=== PATIENT | female | born 1935 | race Caucasian/White ===

== ENCOUNTER 2017-09-06 08:33 | Outpatient (RCR) | payer MEDICARE, OTHER ==
[~2017-09-06 08:33] MED LIST: ALLERGY SHOT; ALPRAZOLAM0.25 M1 PO; ARICEPT5 MG PO; ASA81 MG PO; ASPIR 8181 MG PO; ASPIRIN CHEW81 MG PO; ASPIRIN81 MG PO; CLONIDINE HCL0.1 MG PO; DONEPEZIL HCL5 MG PO; ESCITALOPRAM OX10 MG PO; FERROUS SULFAT325 M1 PO; FERROUS SULFAT325 MG PO; FOLIC ACID1 MG PO; FUROSEMIDE20 MG PO; HYDRALAZINE HCL10 MG PO; HYDRALAZINE HCL25 MG PO; LEXAPRO10 MG PO; LISINOPRIL10 MG PO; POTASSIUM CHLO10 ME1 PO; TRAZODONE HCL50 MG PO; TYLENOL # 31 EA PO; VITAMIN D2000 UNIT PO; Z.0.AMLODIPINE BESYL PO; Z.0.ATENOLOL50 MG OP; Z.0.CRESTOR10 MG PO; Z.0.DETROL LA4 MG PO; Z.0.RANITIDINE HCL30 PO; Z.0.TRICOR145 MG PO; protonix PO
[2017-09-06] MEDS ORDERED: LIDOCAINE VISC 2% SOLN 15 ML UDC ONE (14:53)
[2017-09-15] MEDS ORDERED: MELOXICAM7.5 MG PO (16:33)
[2017-09-15] MEDS ORDERED: HYDRALAZINE HCL50 MG PO (16:33)
[2017-09-15] MEDS ORDERED: FUROSEMIDE20 MG PO (16:33)
[2017-09-15] MEDS ORDERED: QUETIAPINE FUMA25 MG PO (16:34)
== END 2017-09-18 ==
LOC: WCC 08:33
PROVIDERS: ATTEND Plastic Surgery
DX: L89.223 Pressure ulcer of left hip, stage 3 (principal); F03.90 Unspecified dementia, unspecified severity, without behavioral disturbance, psychotic disturbance, mood disturbance, and anxiety; G30.9 Alzheimer's disease, unspecified; I10 Essential (primary) hypertension; Z74.01 Bed confinement status

== ENCOUNTER → 2017-09-16 | Day surgery (SDC) | payer MEDICARE, OTHER ==
[~2017-09-16] MED LIST changes: +BACITRACIN 50,000 UNIT VIAL ONE; +BUPIVACAINE 0.5%/EPI 30 ML SDV INJ ONE; +BUPIVACAINE HCL 0.5% INJ 30 ML VIAL INJ ONE; +CLINDAMYCIN 600MG / 50ML 50 ML IV ONE; +FENTANYL CITRATE/PF 100MCG/2 ML INJ ONE; +HYDRALAZINE HCL50 MG PO; +LEVOTHYROXINE50 MCG PO; +LIDOCAINE HCL 1% LOCAL INJ 20 ML VIAL ONE; +LIDOCAINE HCL 2% LOCAL INJ 5 ML SDV VIAL INJ ONE; +MELOXICAM7.5 MG PO; +MUPIROCIN 2% OINT 22 GM TUBE ONE; +PROPOFOL IV EMULSION 10 MG/ML 20 ML VIAL ONE; +QUETIAPINE FUMA25 MG PO
--- OUTSIDE RECORDS SUMMARY | 2017-09-16 05:49 | XMS REPORT ---
[facility] Address Unknown Phone Unavailable Care Team Providers Care Art Framing Manager Name Role Phone RSOSI ZAVALETA Unavailable Unavailable GALDINO LEE Unavailable Unavailable Problems This patient has no known problems. Allergies, Adverse Reactions, Alerts This patient has no known allergies or adverse reactions. Medications This patient has no known medications. Results Test Description Test Time Test Comments Text Results Atomic Results Result Comments ABDOMEN-1VIEW (KUB) [place] [address] Patient Name: OSWALD RUBIO MR #: [id number] : 1935 Age/Sex: 82/F Req #: [id number] Adm Physician: ROSSI ZAVALETA MD Ordered by : DARIEN ALONSO MD Report #: [id number] Location: MED/SURG3 Room/Bed: [facility] Procedure: [id number] DX/ABDOMEN-1VIEW (KUB) Exam Date : 03/23/17 Exam Time: 1357 REPORT STATUS: Signed PROCEDURE: X-RAY ABDOMEN - KUB COMPARISON: [facility], CT, CT ABDOMEN/PELVIS W, 10/28/2016, 10:13. INDICATIONS: CONSTIPATION FINDINGS: Nonobstructive bowel gas pattern. No air- filled, dilated loops of bowel. Cihy-bo-rtbexswy distention of the stomach. Large amount of stool retained in the colon, suggesting constipation. Multiple calcifications in the pelvis, likely reflecting phleboliths. Cholecystectomy clips. Marked levoscoliosis of the lumbosacral spine, with associated marked degenerative changes. Atherosclerotic calcification of the abdominal aorta. Generalized osteopenia. CONCLUSION: Large amount of retained stool in the colon, suggesting constipation. No air-filled, dilated loops of bowel. Ade Roblero M.D. Dictated by: Ade Roblero M.D. on 03/23/2017 at 14:36 Electronically approved by: Ade Roblero M.D. on 03/23/2017 at 14:36 Dictated By: ADE ROBLERO MD 1436 Transcribed By: KIANA on 03/23/17 1436 COPY TO: DARIEN ALONSO MD CT BRAIN WO [place] [address] Patient Name: OSWALD RUBIO MR #: [id number] : 1935 Age/Sex: 82/F Req # : [id number] Adm Physician: Ordered by: GALDINO LEE MD Report #: [id number] Location: ER Room/Bed: Procedure: [id number] CT/CT BRAIN WO Exam Date: 03/17/17 Exam Time: 1933 REPORT STATUS: Signed EXAMINATION: Head CT without contrast. HISTORY:Trauma, status post fall. COMPARISON:CT brain from 11/29/2015. TECHNIQUE: Multidetector axial images were obtained from the foramen magnum to the vertex without contrast. The images were reconstructed using brain and bone algorithms. Thin section brain images were reformatted into coronal and sagittal planes. Intravenous contrast: None IMAGE QUALITY: Acceptable. FINDINGS: Skull/scalp: Moderate right frontal scalp edema /hematoma. No acute depressed or displaced calvarial fracture. Parenchyma: Unchanged nonspecific bilateral frontoparietal scattered white matter hypodensity are likely related to small vessel ischemic changes. Unchanged cortical-based hypodensity in right inferior temporal gyrus with associated regional volume loss represents chronic encephalomalacia from prior vascular insult or trauma. No acute hemorrhage, mass or acute major vascular territorial infarct. Arteries: Mild atherosclerotic calcification in bilateral carotid siphon. Dural sinuses: No abnormal density suggestive of thrombosis. Ventricles: Mild compensated dilatation due to volume loss. No hydrocephalus. Extra-axial spaces: No abnormal density. Brain volume: Mild generalized cerebral volume loss, with mild predominant involvement of bilateral medial temporal lobes can be seen in the setting of Alzheimer's disease. Craniocervical junction: No mass, Chiari malformation, or basilar invagination. Sella: No mass. Paranasal/mastoid sinuses: Imaged portions unremarkable. IMPRESSION: 1. Moderate right frontal scalp edema/hematoma. No acute fracture. 2. No acute posttraumatic intracranial abnormality. Chronic findings: 1. Mild supratentorial white matter microvascular ischemic changes. 2. Right inferior temporal chronic encephalomalacia, possibly a sequel of prior vascular insult or trauma. 3. Generalized cerebral volume loss with mild predominance of bilateral medial temporal involvement as detailed above. Signed by: Dr. Teri Chance M.D. on 03/17/2017 8:13 PM Dictated By: TERI CHANCE MD 12 Transcribed By: MARILYN on 03/17/172012 COPY TO: GALDINO LEE MD CT CERVICAL SPINE [place] [address] Patient Name: OSWALD RUBIO MR #: [id number] : 1935 Age/Sex: 82/F Req #: [id number] Adm Physician: Ordered by: GALDINO LEE MD Report #: [id number] Location: Room/Bed: Procedure: [id number] CT/CT CERVICAL SPINE WO Exam Date: 03/17/17 Exam Time: 1933 REPORT STATUS: Signed History: Status post fall. Comparison studies: None Technique: Axial images were obtained through the cervical region.. Coronal and sagittal images reconstructed from the axial data.. Intravenous contrast: None Findings: Fractures: None. Soft tissue injuries: None. Atlantoaxial articulation: Intact. Alignment: Normal lordosis. No scoliosis. Cervicomedullary junction: No abnormalities. The foramen magnum is patent. Soft tissues: No abnormalities. Vertebrae: No fractures, infection or neoplasm. 3 mm well-circumscribed, round sclerotic lesion in left occipital condyle possibly represents a bone island. Degenerative changes: Moderate to severe degenerative changes in the anterior atlantodental joint. C3-C4: Moderate degenerative disc disease with decreased intervertebral disc space, endplate sclerosis and anterior vertebral osteophyte. 2 mm grade 1 retrolisthesis. Posterior disc osteophyte complex and grade 1 retrolisthesis results in mild canal stenosis. Mild right and severe left foraminal stenosis due to facet and uncovertebral arthrosis. C4-C5: Moderate degenerative disc disease with decreased intervertebral disc space, endplate sclerosis and anterior vertebral osteophyte. Posterior disc osteophyte complex results in mild canal stenosis. Bilateral severe foraminal stenosis due to facet and uncovertebral arthrosis. C5-C6: Moderate degenerative disc disease with decreased intervertebral disc space, endplate sclerosis and anterior vertebral osteophyte. Posterior disc osteophyte complex and ossification of the posterior longitudinal ligament results in moderate canal stenosis. Moderate right and severe left foraminal stenosis due to facet and uncovertebral arthrosis. C6-C7: Posterior disc osteophyte complex results in mild canal stenosis. Bilateral moderate foraminal stenosis due to facet and uncovertebral arthrosis.. IMPRESSION: 1. No acute cervical spine abnormalities. 2. Ligament, spinal cord and or vascular abnormalities cannot be excluded on the basis of this examination. 3. Cervical spondylosis as detailed above. Signed by: Dr. Teri Chance M.D. on 03/17/2017 8:20 PM Dictated By: TERI CHANCE MD 19 Transcribed By: MARILYN on 03/17/172019 COPY TO: GALDINO LEE MD WRIST COMPLETE LEFT [place] [address] Patient Name: OSWALD RUBIO MR #: [id number] : 1935 Age/Sex: 82/F Req #: [id number] Adm Physician: Ordered by: GALDINO LEE MD Report #: [id number] Location: ER Room/Bed: Procedure: [id number] DX/WRIST COMPLETE LEFT Exam Date: 03/17/17 Exam Time: 1950 REPORT STATUS: Signed Left wrist x-ray - 3 views HISTORY: COMPARISON: 03/17/2017 FINDINGS: Bones: No displaced fracture. Diffuse demineralization of the left hand and wrist. Osseous alignment is within normal limits. Joints: Moderate degenerative changes of the left wrist and hand involving predominantly the first and second carpometacarpal joint as well as distal interphalangeal joints. Soft tissues: Dorsal soft tissue swelling throughout the hand and wrist IMPRESSION: Persistent dorsal soft tissue swelling without underlying acute osseous abnormalities. Progressive bony outgrowth within the base of the right first metatarsal may be due to healing of a nondisplaced fracture. Signed by: Dr. Ирина Lockett M.D. on 03/17/2017 8:31 PM Dictated By: ИРИНА LOCKETT MD 30 Transcribed By: MARILYN on 03/17/172030 COPY TO: GALDINO LEE MD CHEST SINGLE (PORTABLE) [address], [place], [place] [address] Patient Name: OSWALD RUBIO MR #: [id number] : 1935 Age/Sex: 82/F Req #: [id number] Adm Physician: Ordered by: GALDINO LEE MD Report #: [id number] Location: ER Room/Bed: Procedure: [id number] DX/CHEST SINGLE (PORTABLE) Exam Date: 03/17/17 Exam Time: 1949 REPORT STATUS: Signed EXAMINATION: CHEST SINGLE (PORTABLE) INDICATION: COMPARISON: FINDINGS: AP view TUBES and LINES: None. LUNGS : Lungs are well inflated. Lungs are clear. There is no evidence of pneumonia or pulmonary edema. PLEURA: No pleural effusion or pneumothorax. HEART AND MEDIASTINUM: The cardiomediastinal silhouette is unremarkable. BONES AND SOFT TISSUES: Intact median sternotomy wires. Degenerative changes of the right glenohumeral joint. Persistent elevation of the right hemidiaphragm. UPPER ABDOMEN: No free air under the diaphragm. IMPRESSION: No acute thoracic abnormality. Signed by: Dr. Ирина Lockett M.D. on 03/17/2017 8:42 PM Dictated By: ИРИНА LOCKETT MD 41 Transcribed By: MARILYN on 03/17/172041 COPY TO: GALDINO LEE MD HAND 3+ VIEWS LEFT [place] [id number] [place] [address] Patient Name: OSWALD RUBIO MR #: [id number] : 1935 Age/Sex: 82/F Req #: [id number] Adm Physician: Ordered by: GALDINO LEE MD Report #: [id number] Location: ER Room/Bed: Procedure: [id number] DX/HAND 3+ VIEWS LEFT Exam Date: 03/17/17 Exam Time: 0450 REPORT STATUS: Signed WRIST COMPLETE LEFT HAND 3+ VIEWS LEFT HISTORY: Pain COMPARISON: None FINDINGS: Bones: No displaced fracture. Diffuse demineralization of the left hand and wrist. Osseous alignment is within normal limits. Joints: Moderate degenerative changes of the left wrist and hand involving predominantly the first and second carpometacarpal joint as well as distal interphalangeal joints. Soft tissues: Dorsal soft tissue swelling throughout the hand and wrist IMPRESSION: Severe dorsal soft tissue swelling without underlying acute osseous abnormalities. Signed by: Dr. Maxime Myers M.D. on 03/17/2017 6:03 AM Dictated By: MAXIME MARTIN MD 2 Transcribed By: MARILYN on 03/17/17602 COPY TO: GALDINO LEE MD WRIST COMPLETE LEFT [place] [address] Patient Name: OSWALD RUBIO MR #: [id number] : 1935 Age/Sex: 82/F Req #: [id number] Adm Physician: Ordered by: GALDINO LEE MD Report #: [id number] Location: ER Room/Bed: Procedure: DX/WRIST COMPLETE LEFT Exam Date: 03/17/17 Exam Time: 0455 REPORT STATUS: Signed WRIST COMPLETE LEFT HAND 3+ VIEWS LEFT HISTORY: Pain COMPARISON: None FINDINGS: Bones: No displaced fracture. Diffuse demineralization of the left hand and wrist. Osseous alignment is within normal limits. Joints: Moderate degenerative changes of the left wrist and hand involving predominantly the first and second carpometacarpal joint as well as distal interphalangeal joints. Soft tissues: Dorsal soft tissue swelling throughout the hand and wrist IMPRESSION: Severe dorsal soft tissue swelling without underlying acute osseous abnormalities. Signed by: Dr. Maxime Myers M.D. on 03/17/2017 6:03 AM Dictated By: MAXIME MARTIN MD 2 Transcribed By: MARILYN on 03/17/17602 COPY TO: GALDINO LEE MD CHEST SINGLE (PORTABLE) [place] [address] Patient Name: OSWALD RUBIO MR #: [id number] : 1935 Age/Sex: 82/F Req #: [id number] Adm Physician: Ordered by: GALDINO LEE MD Report #: [id number] Location: ER Room/Bed: Procedure: DX/CHEST SINGLE (PORTABLE) Exam Date: 03/17/17 Exam Time: 0445 REPORT STATUS: Signed EXAMINATION: CHEST SINGLE (PORTABLE) INDICATION: Hypertensive urgency. COMPARISON: 11/29/2015 FINDINGS: TUBES and LINES: None. LUNGS: Lungs are not well inflated. There are bibasilar atelectasis. There is no evidence of pneumonia or pulmonary edema. PLEURA: No pleural effusion or pneumothorax. HEART AND MEDIASTINUM: Cardiac size is mildly enlarged. There are atherosclerotic calcifications within the aorta. Midline sternotomy wires are intact. BONES AND SOFT TISSUES: No acute osseous lesion. Soft tissues are unremarkable. UPPER ABDOMEN: No free air under the diaphragm. There are cholecystectomy clips. IMPRESSION: No acute thoracic abnormality. Signed by: Dr. Maxime Myers M.D. on 03/17/2017 6: 04 AM Dictated By: MAXIME MARTIN MD 3 Transcribed By: MARILYN on 03/17/17603 COPY TO: GALDINO LEE MD HAND 3+ VIEWS LEFT [place] [address] Patient Name: OSWALD RUBIO MR #: [id number] : 1935 Age/Sex: 82/F Req #: [id number] Adm Physician: Ordered by: GALDINO LEE MD Report #: [id number] Location: ER Room/Bed: Procedure: [id number] DX/HAND 3+ VIEWS LEFT Exam Date: 03/17/17 Exam Time: 1955 REPORT STATUS: Signed Left wrist x-ray - 3 views, left hand x-ray, 3 views HISTORY: COMPARISON: FINDINGS: Bones: Linear lucency within the distal aspect of the left second proximal phalanx. Otherwise, no fractures in the hands and wrist. Diffuse demineralization of the left hand and wrist. Osseous alignment is within normal limits. Joints: Moderate degenerative changes of the left wrist and hand involving predominantly the first and second carpometacarpal joint as well as distal interphalangeal joints. Soft tissues: Dorsal soft tissue swelling throughout the hand and wrist. Linear lucency within the distal aspect of the left second proximal phalanx suggestive of age-indeterminate nondisplaced fracture, likely subacute. IMPRESSION: Persistent dorsal soft tissue swelling without underlying acute osseous abnormalities. Progressive bony outgrowth within the base of the right first metatarsal may be due to healing of a nondisplaced fracture. Signed by: Dr. Ирина Lockett M.D. on 03/17/2017 8:45 PM Dictated By: ИРИНА LOCKETT MD 44 Transcribed By: MARILYN on 03/17/172044 COPY TO: GALDINO LEE MD
[2017-09-16 06:06] LABS: BASOPHILS % 0.2 % (0.0-1.0); EOSINOPHILS % 0.1 % (0.0-6.0); HEMATOCRIT 33.9 % (34.2-44.1); HEMOGLOBIN 11.5 g/dL (12.0-16.0); LYMPHOCYTES # (AUTO) 0.7 (1.0-3.2); LYMPHOCYTES % 4.7 % (18.0-39.1); MEAN CORPUSCULAR HEMOGLOBIN 30.6 pg (28-32); MEAN CORPUSCULAR HGB CONC 33.9 g/dL (31-35); MEAN CORPUSCULAR VOLUME 90.2 fL (81-99); MONOCYTES # (AUTO) 1.5 (0.2-0.8); MONOCYTES % 9.3 % (4.4-11.3); NEUTROPHILS # (AUTO) 13.4 (2.1-6.9); NEUTROPHILS % 85.2 % (38.7-80.0); PLATELET COUNT 323 x10e3/uL (140-360); RED BLOOD COUNT 3.76 x10e6/uL (3.6-5.1); RED CELL DISTRIBUTION WIDTH 12.6 % (11.7-14.4)
[2017-09-16 06:18] LABS: INR 1.17
[2017-09-16 06:19] LABS: PARTIAL THROMBOPLASTIN TIME 33.1 seconds (23.8-35.5)
[2017-09-16 06:27] LABS: ANION GAP 13.3 mmol/L (8-16); BLOOD UREA NITROGEN 15 mg/dL (7-26); BUN/CREATININE RATIO 22 (6-25); CALCIUM 8.8 mg/dL (8.4-10.2); CARBON DIOXIDE 25 mmol/L (22-29); CHLORIDE 106 mmol/L (98-107); CREATININE, SERUM 0.69 mg/dL (0.57-1.11); EST GLOMERULAR FILTRATION RATE > 60 ML/MIN (60-); GLUCOSE 96 mg/dL (74-118); POTASSIUM 4.3 mmol/L (3.5-5.1); SODIUM 140 mmol/L (136-145)
--- NOTE | 2017-09-16 14:17 | Operative Report ---
DATE OF PROCEDURE: September 16, 2017 PREOPERATIVE DIAGNOSIS: Left trochanteric pressure sore, unstageable. POSTOPERATIVE DIAGNOSIS: Left trochanteric pressure sore, stage IV. PROCEDURE: Excision of trochanteric pressure ulcer, stage IV. ANESTHESIA: MAC/local. HISTORY: The patient is an 82-year-old female who has both dementia and severe contractures of the lower extremities. She has developed a full-thickness left trochanteric pressure sore with devitalized foul-smelling tissue. The risks, benefits and alternatives of treatment were discussed with the patient and the family. She is prepared to undergo the procedure as outlined. DETAILS OF PROCEDURE: Patient was marked preoperatively in the holding area. She was brought to the operating theater. After the induction of adequate IV sedation, she was prepped and draped in a supine position, and a time out was performed. The entire ulcer was infiltrated with 1% Xylocaine with epinephrine. Approximately 12 mL was utilized. After waiting an appropriate amount of time for maximum vasoconstrictive and analgesic effect, the ulcer was excised using the electrocautery. Directly over the trochanter, the ulcer extended all the way down to the periosteal tissues. All the devitalized tissue was removed in one setting. At this point, the wound was then pulse lavaged using antibiotic-containing solution of several liters. Then hemostasis was checked and made absolute once again. The wound was packed with a saline-soaked gauze, and sterile dressings were applied. The patient was returned to recovery room in satisfactory condition and discharged with a postoperative instruction sheet as well as a followup appointment. Job#: [id number]
== END | disposition home or self-care (01) ==
LOC: OR 05:46
PROVIDERS: ATTEND Plastic Surgery
DX: L89.224 Pressure ulcer of left hip, stage 4 (principal); I10 Essential (primary) hypertension; I25.810 Atherosclerosis of coronary artery bypass graft(s) without angina pectoris; G30.9 Alzheimer's disease, unspecified; F02.80 Dementia in other diseases classified elsewhere, unspecified severity, without behavioral disturbance, psychotic disturbance, mood disturbance, and anxiety; Z74.01 Bed confinement status; Z79.82 Long term (current) use of aspirin; Z95.1 Presence of aortocoronary bypass graft
CPT/HCPCS: 11043; 36415; 80048; 85025; 85610; 85730; J2001

== ENCOUNTER 2017-10-08 09:57 | Outpatient (RCR) | payer MEDICARE, OTHER ==
[2017-10-01 15:57] LABS: BASOPHILS % 0.6 % (0.0-1.0); EOSINOPHILS # (AUTO) 0.1 (0.0-0.4); EOSINOPHILS % 0.9 % (0.0-6.0); HEMATOCRIT 36.5 % (34.2-44.1); HEMOGLOBIN 11.8 g/dL (12.0-16.0); LYMPHOCYTES # (AUTO) 0.7 (1.0-3.2); LYMPHOCYTES % 10.1 % (18.0-39.1); MEAN CORPUSCULAR HEMOGLOBIN 29.8 pg (28-32); MEAN CORPUSCULAR HGB CONC 32.3 g/dL (31-35); MEAN CORPUSCULAR VOLUME 92.2 fL (81-99); MONOCYTES # (AUTO) 0.4 (0.2-0.8); MONOCYTES % 6.6 % (4.4-11.3); NEUTROPHILS # (AUTO) 5.4 (2.1-6.9); PLATELET COUNT 312 x10e3/uL (140-360); RED BLOOD COUNT 3.96 x10e6/uL (3.6-5.1); RED CELL DISTRIBUTION WIDTH 13.3 % (11.7-14.4)
[2017-10-01 16:13] LABS: ALANINE AMINOTRANSFERASE 19 IU/L (0-55); ALBUMIN 2.4 g/dL (3.5-5.0); ALBUMIN/GLOBULIN RATIO 0.8 (0.8-2.0); ALKALINE PHOSPHATASE 78 IU/L (40-150); ANION GAP 12.5 mmol/L (8-16); BLOOD UREA NITROGEN 9 mg/dL (7-26); BUN/CREATININE RATIO 13 (6-25); CALCIUM 8.8 mg/dL (8.4-10.2); CARBON DIOXIDE 27 mmol/L (22-29); CHLORIDE 100 mmol/L (98-107); CREATININE, SERUM 0.72 mg/dL (0.57-1.11); EST GLOMERULAR FILTRATION RATE > 60 ML/MIN (60-); GLUCOSE 74 mg/dL (74-118); POTASSIUM 4.5 mmol/L (3.5-5.1); SODIUM 135 mmol/L (136-145)
[~2017-10-08 09:57] MED LIST changes: -BACITRACIN 50,000 UNIT VIAL ONE; -BUPIVACAINE 0.5%/EPI 30 ML SDV INJ ONE; -BUPIVACAINE HCL 0.5% INJ 30 ML VIAL INJ ONE; -CLINDAMYCIN 600MG / 50ML 50 ML IV ONE; -FENTANYL CITRATE/PF 100MCG/2 ML INJ ONE; -LEVOTHYROXINE50 MCG PO; -LIDOCAINE HCL 1% LOCAL INJ 20 ML VIAL ONE; -LIDOCAINE HCL 2% LOCAL INJ 5 ML SDV VIAL INJ ONE; +LIDOCAINE VISC 2% SOLN 15 ML UDC ONE; -MUPIROCIN 2% OINT 22 GM TUBE ONE; -PROPOFOL IV EMULSION 10 MG/ML 20 ML VIAL ONE
[2017-10-08] MEDS ORDERED: LIDOCAINE VISC 2% SOLN 15 ML UDC ONE (16:25)
== END 2017-10-18 ==
LOC: WCC 09:57
PROVIDERS: ATTEND Internal Medicine Infectious Disease
DX: L89.223 Pressure ulcer of left hip, stage 3 (principal); F03.90 Unspecified dementia, unspecified severity, without behavioral disturbance, psychotic disturbance, mood disturbance, and anxiety; G30.9 Alzheimer's disease, unspecified; I10 Essential (primary) hypertension; Z74.01 Bed confinement status
CPT/HCPCS: 36415; 80053; 84134; 85025; 86140; 87071; 87075; 87186; 87205

== ENCOUNTER 2017-10-22 10:33 | Outpatient (RCR) | payer MEDICARE, OTHER ==
[~2017-10-22 10:33] MED LIST changes: -LIDOCAINE VISC 2% SOLN 15 ML UDC ONE
[2017-10-22] MEDS ORDERED: LIDOCAINE VISC 2% SOLN 15 ML UDC ONE (15:36)
[2017-10-28] MEDS ORDERED: LEVOTHYROXINE50 MCG PO (00:33)
== END 2017-11-18 ==
LOC: WCC 10:33
PROVIDERS: ATTEND Plastic Surgery
DX: L89.223 Pressure ulcer of left hip, stage 3 (principal); F03.90 Unspecified dementia, unspecified severity, without behavioral disturbance, psychotic disturbance, mood disturbance, and anxiety; G30.9 Alzheimer's disease, unspecified; I10 Essential (primary) hypertension; Z74.01 Bed confinement status

== ENCOUNTER 2017-10-27 15:38 | Inpatient (IN) | payer MEDICARE, OTHER ==
[~2017-10-27] VITALS: Ht 149.9 cm; Wt 46.4 kg
--- OUTSIDE RECORDS SUMMARY | 2017-10-27 15:42 | XMS REPORT | Continuity of Care Document ---
Author Author [facility] Organization [facility] Address [address] [place] [address] Phone Unavailable Care Team Providers Care Ticket Maker Name Role Phone ROSSI ZAVALETA MD PCP Insurance Providers Guarantor Oswald Restrepo Address [address] [place] [address] Email PTDECLINED Payer Miscellaneous Indemnity Policy Number [id number] Subscriber's Name Oswald Restrepo Relationship 18 Self / Same As Patient Group Number PLAN G Group Name RETIRED Effective Date 04 Payer Medicare A & B Policy Number [id number] Subscriber's Name Oswald Restrepo Relationship 18 Self / Same As Patient Group Name RETIRED Effective Date 99 Advance Directives Directive Response Recorded Date/Time Does the patient have an advance directive? No 03/18/17 2:02am If yes, is advance directive on file with [facility]? No 11/30/15 5:11am If not on file with [facility] will patient provide a copy? No 11/18/16 10:24am Do you have a Directive to Physician? No 09/16/17 12:53pm Do you have a Medical Power of Pack Operator? No 09/16/17 12:53pm Do you have an out of hospital Do Not Resuscitate Order? No 09/16/17 12:53pm Do you have any special needs we should be aware of? No 09/16/17 12:53pm Do you have a support person here with you today? No 09/16/17 12:53pm Did patient receive Notice of Privacy Practices? Yes 09/16/17 12:53pm Did patient receive patient rights and responsibilities? Yes 09/16/17 12:53pm Problems Medical Problem Onset Date Status Anxiety Unknown Acute Bradycardia 11/30/2015 Acute Contusion Unknown Dementia Unknown Fall Unknown GI bleed 01/30/2015 Acute Hematoma Unknown Hematuria Unknown Hypertension 11/30/2015 Acute Hyperventilation syndrome Unknown Acute Numbness 11/30/2015 Acute UTI (urinary tract infection) Unknown Medications Current Home Medications Medication Dose Units Route Directions Days Qty Instructions Start Date Alprazolam 0.25 Mg Tab.rapdis 0.25 Mg Oral Daily Aspirin (Aspir 81) 81 Mg Tablet.dr 81 Mg Oral Daily Clonidine Hcl 0.1 Mg Tablet 1 Tab Oral Twice A Day as needed for Elevated Blood Pressure 60 Tab Donepezil Hcl (Aricept) 5 Mg Tablet 5 Mg Oral Bedtime 30 Tab Escitalopram Oxalate (Lexapro) 10 Mg Tablet 10 Mg Oral Daily 30 Tab Folic Acid 1 Mg Tablet 1 Mg Oral Daily 30 Tab Furosemide 20 Mg Tablet 20 Mg Oral Daily Hydralazine Hcl 50 Mg Tablet 50 Mg Oral Twice A Day Lisinopril 10 Mg Tablet 20 Mg Oral Twice A Day 30 Tab Meloxicam 7.5 Mg Tablet 7.5 Mg Oral Daily 30 Tab Potassium Chloride 10 Meq Tab.er.prt 10 Meq Oral Daily Protonix 40 Mg Oral Daily Quetiapine Fumarate 25 Mg Tablet 25 Mg Oral Bedtime Trazodone Hcl 50 Mg Tablet 50 Mg Oral Bedtime 30 Tab Past Home Medications Medication Directions Ordered Status Acetaminophen/Codeine Phosphate (Tylenol # 3*) 1 Ea Tab, 1 Tab Oral Every 12 Hours Discontinued Allergy Shot , Weekly Discontinued Amlodipine Besylate 5 Mg Tablet, 1 Tab Oral Daily Discontinued Aspirin 81 Mg Tab.chew, 81 Mg Oral Daily Discontinued Aspirin (Aspirin Chew) 81 Mg Chew, 81 Mg Oral Daily Discontinued Aspirin (Asa) 81 Mg Tab, 1 Tab Oral Daily Discontinued Atenolol 50 Mg Tablet, 1 Tab Ophthalmic Daily Discontinued Cholecalciferol (Vitamin D3) (Vitamin D) 2,000 Unit Capsule, 2000 Units Oral Daily Discontinued Donepezil Hcl 5 Mg Tablet, 5 Mg Oral Daily Discontinued Escitalopram Oxalate 10 Mg Tablet, 10 Mg Oral Daily Discontinued Fenofibrate Nanocrystallized (Tricor) 145 Mg Tablet, 1 Tab Oral Daily Discontinued Ferrous Sulfate 325 Mg Tablet.dr, 325 Mg Oral Daily Discontinued Ferrous Sulfate 325 Mg Tablet, 1 Tab Oral Twice Daily With Meals Discontinued Furosemide 20 Mg Tablet, 20 Mg Oral Daily Discontinued Hydralazine Hcl 10 Mg Tablet, 50 Mg Oral Three Times A Day Discontinued Hydralazine Hcl 25 Mg Tab, 50 Mg Oral Three Times A Day Discontinued Rosuvastatin Calcium (Crestor) 10 Mg Tablet, 1 Tab Oral Daily Discontinued Tolterodine Tartrate (Detrol La) 4 Mg Cap.sr.24h, 1 Tab Oral Daily Discontinued Social History Social History Problem Response Recorded Date/Time Onset Date Status Hx Psychiatric Problems No 03/18/2017 2:02am Not Applicable Not Applicable Hx Eating Disorder No 03/18/2017 2:02am Not Applicable Not Applicable Hx Substance Use Disorder No 03/18/2017 2:02am Not Applicable Not Applicable Hx Depression No 03/18/2017 2:02am Not Applicable Not Applicable Hx Alcohol Use No 03/18/2017 2:02am Not Applicable Not Applicable Hx Substance Use Treatment No 03/18/2017 2:02am Not Applicable Not Applicable Hx Physical Abuse No 03/18/2017 2:02am Not Applicable Not Applicable Hospital Discharge Instructions No hospital discharge instruction information available. Plan of Care Prescriptions See Medication Section Functional Status No functional status information available. Allergies, Adverse Reactions, Alerts Allergen Type Severity Reaction Status Last Updated ciprofloxacin HCl Allergy Unknown Active 03/17/17 Penicillin Allergy Unknown Active 10/05/07 Nifedipine Allergy Unknown Active 10/05/07 Trimethoprim Allergy Unknown Active 10/05/07 Ciprofloxacin Allergy Unknown Active 03/17/17 Diltiazem Allergy Unknown Active 10/05/07 Metoclopramide Allergy Unknown Active 10/05/07 Immunizations No immunization information available. Vital Signs Acute Vital Signs Vital Response Date/Time Temperature (Fahrenheit) 98.4 degrees F (97.6 - 99.5) 03/23/2017 8:20pm Pulse Pulse Rate (adult) 79 bpm (60 - 90) 03/23/2017 8:20pm Respiratory Rate 18 bpm (12 - 24) 03/23/2017 8:20pm Blood Pressure 133/61 mm Hg 03/23/2017 8:20pm Results Laboratory Results Test Name Result Units Flags Reference Collection Date/Time Result Date/ Time Comments Magnesium Level 2.1 MG/DL 1.3-2.1 03/17/2017 4:48am 03/17/2017 5:11am Urine Color YELLOW YELLOW 03/17/2017 9:17pm 03/17/2017 10:44pm Urine Clarity CLEAR CLEAR 03/17/2017 9:17pm 03/17/2017 10:44pm Urine Specific [place] 1.030 H 1.010-1.025 03/17/2017 9:17pm 2016 10:44pm Urine pH 5 5 - 7 03/17/2017 9:17pm 03/17/2017 10:44pm Urine Leukocyte Esterase TRACE H NEGATIVE 03/17/2017 9:17pm 2016 10:44pm Urine Nitrite POSITIVE H NEGATIVE 03/17/2017 9:17pm 03/17/2017 10: 44pm Urine Protein 2+ H NEGATIVE 03/17/2017 9:17pm 03/17/2017 10:44pm Urine Glucose (UA) NEGATIVE NEGATIVE 03/17/2017 9:17pm 03/17/2017 10: 44pm Urine Ketones NEGATIVE NEGATIVE 03/17/2017 9:17pm 03/17/2017 10:44pm Urine Urobilinogen 4 mg/dL H 0.2 - 1 03/17/2017 9:17pm 03/17/2017 10: 44pm Urine Bilirubin NEGATIVE NEGATIVE 03/17/2017 9:17pm 03/17/2017 10: 44pm Urine Blood 4+ H NEGATIVE 03/17/2017 9:17pm 03/17/2017 10:44pm Urine WBC 0-5 /HPF 0-5 03/17/2017 9:17pm 03/17/2017 10:45pm Urine RBC 11-20 /HPF H 0-5 03/17/2017 9:17pm 03/17/2017 10:45pm Urine Bacteria MODERATE /HPF H NONE 03/17/2017 9:17pm 03/17/2017 10: 45pm Urine Epithelial Cells NONE /LPF NONE 03/17/2017 9:17pm 03/17/2017 10: 45pm Creatine Kinase 78 IU/L 29-168 03/17/2017 8:35pm 03/17/2017 9:24pm Creatine Kinase MB 2.70 ng/mL 0.00-5.00 03/17/2017 8:35pm 03/17/2017 9: 24pm Troponin I 0.034 ng/mL 0-0.300 03/17/2017 8:35pm 03/17/2017 9:24pm Prothrombin Time 14.0 seconds 11.9-14.5 09/16/2017 5:55am 09/16/2017 6: 34am Prothromb Time International Ratio 1.17 09/16/2017 5:55am 2017 6:34am Oral Anticoagulant Therapy INR Values: 1. Low Intensity Therapy 1.5 - 2.0 2. Moderate Intensity Therapy 2.0 - 3.0 3. High Intensity Therapy(1) 2.5 - 3.5 4. High Intensity Therapy(2) 3.0 - 4.0 5. Panic Value INR > 5.0 Activated Partial Thromboplast Time 33.1 seconds 23.8-35.5 09/16/2017 5: 55am 09/16/2017 6:34am White Blood Count 6.63 x10e3/uL 4.8-10.8 10/01/2017 11:44am 10/01/2017 3:57pm Red Blood Count 3.96 x10e6/uL 3.6-5.1 10/01/2017 11:44am 10/01/2017 3: 57pm Hemoglobin 11.8 g/dL L 12.0-16.0 10/01/2017 11:44am 10/01/2017 3:57pm Hematocrit 36.5 % 34.2-44.1 10/01/2017 11:44am 10/01/2017 3:57pm Mean Corpuscular Volume 92.2 fL 81-99 10/01/2017 11:4410/01/2017 3: 57pm Mean Corpuscular Hemoglobin 29.8 pg 28-32 10/01/2017 11:44am 2017 3:57pm Mean Corpuscular Hemoglobin Concent 32.3 g/dL 31-35 10/01/2017 11:44am 10/01/2017 3:57pm Red Cell Distribution Width 13.3 % 11.7-14.4 10/01/2017 11:44am 2017 3:57pm Platelet Count 312 x10e3/uL 140-360 10/01/2017 11:4410/01/2017 3: 57pm Neutrophils (%) (Auto) 81.0 % H 38.7-80.0 10/01/2017 11:4410/01/2017 3:57pm Lymphocytes (%) (Auto) 10.1 % L 18.0-39.1 10/01/2017 11:4410/01/2017 3:57pm Monocytes (%) (Auto) 6.6 % 4.4-11.3 10/01/2017 11:4410/01/2017 3: 57pm Eosinophils (%) (Auto) 0.9 % 0.0-6.0 10/01/2017 11:4410/01/2017 3: 57pm Basophils (%) (Auto) 0.6 % 0.0-1.0 10/01/2017 11:4410/01/2017 3: 57pm IM GRANULOCYTES % 0.8 % 0.0-1.0 10/01/2017 11:4410/01/2017 3:57pm Neutrophils # (Auto) 5.4 2.1-6.9 10/01/2017 11:4410/01/2017 3: 57pm Lymphocytes # (Auto) 0.7 L 1.0-3.2 10/01/2017 11:4410/01/2017 3: 57pm Monocytes # (Auto) 0.4 0.2-0.8 10/01/2017 11:4410/01/2017 3:57pm Eosinophils # (Auto) 0.1 0.0-0.4 10/01/2017 11:4410/01/2017 3: 57pm Basophils # (Auto) 0.0 0.0-0.1 10/01/2017 11:4410/01/2017 3:57pm Absolute Immature Granulocyte (auto 0.05 x10e3/uL 0-0.1 10/01/2017 11: 4410/01/2017 3:57pm Sodium Level 135 mmol/L L 136-145 10/01/2017 11:4410/01/2017 4:13pm Potassium Level 4.5 mmol/L 3.5-5.1 10/01/2017 11:4410/01/2017 4: 13pm Chloride Level 100 mmol/L 98-107 10/01/2017 11:4410/01/2017 4:13pm Carbon Dioxide Level 27 mmol/L 22-29 10/01/2017 11:4410/01/2017 4: 13pm Anion Gap 12.5 mmol/L 8-16 10/01/2017 11:4410/01/2017 4:13pm Blood Urea Nitrogen 9 mg/dL 7-26 10/01/2017 11:4410/01/2017 4:13pm Creatinine 0.72 mg/dL 0.57-1.11 10/01/2017 11:4410/01/2017 4:13pm BUN/Creatinine Ratio 13 6-25 10/01/2017 11:4410/01/2017 4:13pm Estimat Glomerular Filtration Rate > 60 ML/MIN 60- 10/01/2017 11:4410/01/2017 4:13pm Ranges were taken from the National Kidney Disease Education Program and the National Kid[employer] Foundation literature. Reference ranges: 60 or greater: Normal 16-59 (for 3 consecutive months): Chronic kidney disease 15 or less: Kidney failure Glucose Level 74 mg/dL 74-118 10/01/2017 11:4410/01/2017 4:13pm Calcium Level 8.8 mg/dL 8.4-10.2 10/01/2017 11:4410/01/2017 4:13pm Total Bilirubin 0.6 mg/dL 0.2-1.2 10/01/2017 11:4410/01/2017 4:13pm Aspartate Amino Transf (AST/SGOT) 30 IU/L 5-34 10/01/2017 11:4410/01 4:13pm Alanine Aminotransferase (ALT/SGPT) 19 IU/L 0-55 10/01/2017 11:44 4:13pm Total Protein 5.3 g/dL L 6.5-8.1 10/01/2017 11:4410/01/2017 4:13pm Albumin 2.4 g/dL L 3.5-5.0 10/01/2017 11:4410/01/2017 4:13pm Globulin 2.9 g/dL 2.3-3.5 10/01/2017 11:4410/01/2017 4:13pm Albumin/Globulin Ratio 0.8 0.8-2.0 10/01/2017 11:44am 10/01/2017 4: 13pm Alkaline Phosphatase 78 IU/L 40-150 10/01/2017 11:44am 10/01/2017 4: 13pm Prealbumin 12 mg/dL 9-32 10/01/2017 11:44am 10/02/2017 1:22pm Performed at: - [facility] [id number] House Fellow: Awais Aj MD, Phone: [phone] C-Reactive Protein 10.1 mg/L H 0.0-4.9 10/01/2017 11:44am 10/02/2017 1: 22pm Microbiology Results Procedure Source Organism/Result Collection Date/Time Result Date/Time Result Status Wound Culture Hip, Left PSEUDOMONAS AERUGINOSA 10/01/2017 11:44am 2017 6:46am Final Procedures Procedure Status Date Provider(s) MICHELLE MUSC/FASCIA 20 SQ CM/< Completed 09/16/17 RAVI BLUNT MD Computed tomography of brain without radiopaque contrast Active 03/17/17 GALDINO LEE MD Computed tomography of cervical spine without contrast Active 03/17/17 GALDINO LEE MD Encounters Encounter Location Arrival/Admit Date Discharge/Depart Date Attending Provider Discharged [facility] 10/08/17 9:57am 10/18/17 11:59pm AYANNA GALINDO MD Registered Surgical Day Care [facility] 09/16/17 5:46am RAVI BLUNT MD Discharged [facility]ring [facility] 09/06/17 8:33am 09/18/17 11:59pm RAVI BLUNT MD Discharged [facility]patient [facility] 03/17/17 11:13pm 8:45pm ROSSI ZAVALETA MD Departed Emergency Room [facility] 03/17/17 3:42am 8:13am GALDINO LEE MD
[2017-10-27] MEDS ORDERED: SODIUM CHLORIDE 0.9% 1000ML 1,000 ML IV STA (16:02)
[2017-10-27 16:59] LABS: BASOPHILS % 0.2 % (0.0-1.0); HEMATOCRIT 34.6 % (34.2-44.1); HEMOGLOBIN 11.4 g/dL (12.0-16.0); LYMPHOCYTES # (AUTO) 0.2 (1.0-3.2); LYMPHOCYTES % 1.7 % (18.0-39.1); MEAN CORPUSCULAR HEMOGLOBIN 30.2 pg (28-32); MEAN CORPUSCULAR HGB CONC 32.9 g/dL (31-35); MEAN CORPUSCULAR VOLUME 91.5 fL (81-99); MONOCYTES # (AUTO) 0.7 (0.2-0.8); MONOCYTES % 4.8 % (4.4-11.3); NEUTROPHILS # (AUTO) 12.8 (2.1-6.9); NEUTROPHILS % 92.8 % (38.7-80.0); PLATELET COUNT 269 x10e3/uL (140-360); RED BLOOD COUNT 3.78 x10e6/uL (3.6-5.1); RED CELL DISTRIBUTION WIDTH 14.8 % (11.7-14.4)
--- NOTE | 2017-10-27 17:13 | Diagnostic Imaging Report ---
PROCEDURE: A single AP view of the chest. COMPARISON: 03/17/17 INDICATIONS: CHF FINDINGS: Lines/tubes: None. Lungs: Limited by rotation. Retrocardiac opacification. Pleura: There is no visible pneumothorax. Trace bilateral pleural effusions suspected. Heart and mediastinum: The heart and the mediastinum are unremarkable. Median sternotomy wires. Bones: No acute bony abnormality. IMPRESSION: Limited study due to rotation and portable technique. Retrocardiac opacification representing atelectasis and/or pneumonia. Trace bilateral pleural effusions suspected. Dictated by: Gordo Corral M.D. on 10/27/2017 at 17:15 Electronically approved by: Gordo Corral M.D. on 10/27/2017 at 17:15
[2017-10-27] MEDS ORDERED: CEFEPIME HCL 1 GM VIAL IV ONE (17:30)
[2017-10-27 17:46] LABS: ALANINE AMINOTRANSFERASE 14 IU/L (0-55); ALBUMIN 2.2 g/dL (3.5-5.0); ALBUMIN/GLOBULIN RATIO 0.8 (0.8-2.0); ALKALINE PHOSPHATASE 80 IU/L (40-150); ANION GAP 11.2 mmol/L (8-16); BLOOD UREA NITROGEN 19 mg/dL (7-26); BUN/CREATININE RATIO 26 (6-25); CALCIUM 8.4 mg/dL (8.4-10.2); CARBON DIOXIDE 26 mmol/L (22-29); CHLORIDE 104 mmol/L (98-107); CREATININE, SERUM 0.72 mg/dL (0.57-1.11); EST GLOMERULAR FILTRATION RATE > 60 ML/MIN (60-); GLUCOSE 121 mg/dL (74-118); MAGNESIUM 1.4 MG/DL (1.3-2.1); PHOSPHORUS 2.6 MG/DL (2.3-4.7); POTASSIUM 4.2 mmol/L (3.5-5.1); SODIUM 137 mmol/L (136-145)
[2017-10-27] MEDS ORDERED: ACETAMINOPHEN 325 MG/10 ML UDC PO ONE (18:00)
[2017-10-27 18:07] LABS: CLARITY,URINE CLEAR (CLEAR); COLOR,URINE AMBER (YELLOW); LEUKOCYTE ESTERASE ,URINE NEGATIVE (NEGATIVE); NITRITE,URINE NEGATIVE (NEGATIVE); PROTEIN,URINE DIPSTICK 1+ (NEGATIVE)
[2017-10-27 18:08] LABS: BILIRUBIN,URINE NEGATIVE (NEGATIVE); KETONES,URINE NEGATIVE (NEGATIVE); URINE UROBILINOGEN 1 mg/dL (0.2 - 1)
[2017-10-27 18:11] LABS: HYALINE CASTS 0-1 (0-1); RBC,URINE 0-5 /HPF (0-5); WBC,URINE (MAN) 0-5 /HPF (0-5)
[2017-10-27 18:12] LABS: MUCUS,URINE MODERATE (RARE)
[2017-10-27] MEDS: VANCOMYCIN 500MG/NS 0.9% 100ML 100 ML IV SCH (18:16)
[2017-10-27] MEDS ORDERED: ACETAMINOPHEN 650 MG SUPP PR ONE ×2 (18:22→18:30)
[2017-10-27] MEDS ORDERED: SODIUM CHLORIDE FLUSH 10 ML SYR INJ PRN (18:30)
[2017-10-27 18:45] LABS: LYMPHOCYTES % (MANUAL) 4 % (19-48); MONOCYTES % (MANUAL) 1 % (3.4-9.0); NEUTROPHILS % (MANUAL) 95 % (40-74)
[2017-10-27 18:46] LABS: PLATELET ESTIMATE ADEQUATE; PLATELET MORPHOLOGY COMMENT NORMAL; RBC MORPHOLOGY COMMENT NORMAL
[2017-10-27] MEDS: CLINDAMYCIN 600MG/D5W 50ML 50 ML IV SCH (19:23)
[2017-10-27] MEDS: SODIUM CHLORIDE 0.9% 1000ML 1,000 ML IV SCH (19:23)
[2017-10-27] MEDS: FAMOTIDINE 20 MG/2 ML VIAL IV SCH (21:07)
[2017-10-27 23:05] VITALS: BP 163/86
[2017-10-27 23:15] VITALS: BP 163/86
[2017-10-28] MEDS ORDERED: LEVOTHYROXINE50 MCG PO (00:33)
[2017-10-28] MEDS: CLINDAMYCIN 600MG/D5W 50ML 50 ML IV SCH ×3 (03:59→20:12)
[2017-10-28 04:00] VITALS: BP 156/81
[2017-10-28] MEDS ORDERED: VANCOMYCIN 1GM/NS 250 ML 250 ML ONE (04:34)
[2017-10-28] MEDS: VANCOMYCIN 500MG/NS 0.9% 100ML 100 ML IV SCH ×2 (05:30→17:40)
[2017-10-28 06:40] LABS: BASOPHILS % 0.3 % (0.0-1.0); EOSINOPHILS % 0.1 % (0.0-6.0); HEMATOCRIT 28.1 % (34.2-44.1); LYMPHOCYTES # (AUTO) 0.6 (1.0-3.2); LYMPHOCYTES % 7.2 % (18.0-39.1); MEAN CORPUSCULAR VOLUME 93.7 fL (81-99); MONOCYTES # (AUTO) 0.7 (0.2-0.8); MONOCYTES % 8.1 % (4.4-11.3); NEUTROPHILS # (AUTO) 7.3 (2.1-6.9); NEUTROPHILS % 83.3 % (38.7-80.0); PLATELET COUNT 185 x10e3/uL (140-360); RED CELL DISTRIBUTION WIDTH 14.6 % (11.7-14.4)
[2017-10-28 06:44] LABS: INR 1.2; PROTHROMBIN TIME 14.3 seconds (11.9-14.5)
[2017-10-28 06:45] LABS: PARTIAL THROMBOPLASTIN TIME 32.7 seconds (23.8-35.5)
[2017-10-28 07:03] LABS: ALANINE AMINOTRANSFERASE 12 IU/L (0-55); ALBUMIN 1.7 g/dL (3.5-5.0); ALBUMIN/GLOBULIN RATIO 0.7 (0.8-2.0); ALKALINE PHOSPHATASE 67 IU/L (40-150); ANION GAP 9.8 mmol/L (8-16); BLOOD UREA NITROGEN 19 mg/dL (7-26); BUN/CREATININE RATIO 29 (6-25); CALCIUM 7.8 mg/dL (8.4-10.2); CARBON DIOXIDE 23 mmol/L (22-29); CHLORIDE 109 mmol/L (98-107); CREATININE, SERUM 0.65 mg/dL (0.57-1.11); EST GLOMERULAR FILTRATION RATE > 60 ML/MIN (60-); GLUCOSE 98 mg/dL (74-118); POTASSIUM 3.8 mmol/L (3.5-5.1); SODIUM 138 mmol/L (136-145)
[2017-10-28] MEDS: LISINOPRIL 20 MG TAB PO SCH (09:00)
[2017-10-28] MEDS: DOCUSATE SODIUM 100 MG CAP PO SCH ×2 (09:00→17:00)
--- NOTE | 2017-10-28 09:06 | History and Physical ---
CHIEF COMPLAINT: Left upper extremity redness and swelling progressively worsening since the last few days. HISTORY OF PRESENT ILLNESS: An 82-year-old pleasant white female with a past medical history of multiple medical problems was admitted at [facility] last evening with the above complaints. The patient was seen in my office and brought in by her for the above complaints. As per her , the patient started having left upper extremity swelling and redness since the last few days and progressively worsening. In the emergency room, the patient was seen by the emergency room doctor and started on IV vancomycin and IV clindamycin. The patient was also seen by infectious disease, Dr. Cole in the ER. At present, the patient is lying in bed occasionally screaming and in no apparent distress. PAST MEDICAL HISTORY 1. Advanced Alzheimer dementia with agitation. 2. Hypertension. 3. Hyperlipidemia. 4. Acid reflux. 5. The patient has chronic stage 4 sacral wound. ALLERGIES: PENICILLIN, BACTRIM, CIPRO, PROCARDIA, CORTISONE, REGLAN, AMLODIPINE, SULFA. REVIEW OF SYSTEMS: Unable to elicit as the patient has advanced Alzheimer dementia. SOCIAL HISTORY: No smoking. No alcohol. and lives with . FAMILY HISTORY: Noncontributory. PHYSICAL EXAMINATION GENERAL: The patient is alert, awake and oriented times zero. Obese. Follows commands. Laying comfortably in bed. No cyanosis. There is no pallor. The patient overall is cachectic and malnourished. VITALS: Temperature is 97, pulse 60 per minute, respirations 20, blood pressure 156/80, and saturation 100% on room air. HEENT: Normocephalic and atraumatic. PERRLA. NECK: Soft and supple. No JVD. No lymphadenopathy. LUNGS: Air entry bilaterally. HEART: S1 and S2. No gallop. No rub. ABDOMEN: Soft and nontender. Bowel sounds present. 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 Confused and screaming on and off. EXTREMITIES: Left upper extremity swelling and redness plus. The patient has a sacral wound with purulent discharge. LABS: This morning white count 8.7, hemoglobin 9, hematocrit 28.1, and platelets 185,000. Sodium 138, potassium 3.8, chloride 109, bicarb 23, BUN 19, creatinine 0.6, glucose 98. LFTs noted. Chest x-ray with limited study due to rotation portable technique. opacity, atelectasis and/or pneumonia. Trace bilateral pleural effusion suspected. ASSESSMENT 1. Left upper extremity severe cellulitis. 2. Infected stage 4 sacral wound. 3. History of hypertension. 4. Advanced Alzheimer dementia. 5. Hyperlipidemia. 6. Acid reflux. PLAN: Admit the patient to med/tele. The patient was started on IV vancomycin and IV cefepime. Pancultures. Will continue the patient's home medications. Will also give the patient Ativan 0.5 mg p.o. q.8 h. p.r.n. for agitation and anxiety. Will get wound care consult. Further care and treatment while the patient is in the hospital. Prognosis is extremely guarded. Discussed with in detail. Job#: [id number] LINO
[2017-10-28] MEDS: FAMOTIDINE 20 MG/2 ML VIAL IV SCH ×2 (09:42→21:12)
[2017-10-28] MEDS: HYDRALAZINE HCL 100 MG TABLET PO SCH ×3 (09:42→21:12)
[2017-10-28] MEDS: CEFEPIME HCL 1 GM VIAL IV SCH ×2 (09:42→21:12)
[2017-10-28] MEDS: LACTOBACILLUS ACIDOPHILUS CAPSULE PO SCH ×2 (09:43→17:15)
[2017-10-28] MEDS: LORAZEPAM 0.5 MG TAB PO PRN ×2 (09:43→18:36)
[2017-10-28 09:52] VITALS: BP 154/81
[2017-10-28 12:00] VITALS: BP 132/82
--- NOTE | 2017-10-28 14:54 | Consultation ---
DATE OF CONSULTATION: October 27, 2017 HISTORY OF PRESENT ILLNESS: This patient who is an 82-year-old white female, history of advanced dementia, history of infections of her hand before. The patient comes in with redness and swelling of her left upper extremity which started over a couple of days. The patient has been very ill recently. She does have underlying history of hypertension, depression, dementia, degenerative joint disease, pretty much bedridden, but she is getting progressively worse and there was discussion to do hospice, but today, the called Dr. Velazco saying that the arm and hand look really red and swollen; so, he brought her here. It is the same time which she had infection about a year ago. I took care of her at that time. Patient was brought to the emergency room and really did not provide any meaningful information, but I met with the and her daughter. Patient is very thin and cachectic and she is more pain. PAST MEDICAL HISTORY: Hypertension; depression and anxiety, severe; dementia, advanced; degenerative joint disease; osteoarthritis; and scoliosis. PAST SURGICAL HISTORY: Not available. MEDICATIONS: She is on lisinopril, trazodone, Lexapro, potassium, clonidine, folic acid, and Aricept. ALLERGIES: PENICILLIN BUT SHE DID WELL ON THE CEPHALOSPORIN. PAST SURGICAL HISTORY: CABG 7 years ago, cholecystectomy a few years ago. FAMILY HISTORY: Noncontributory. REVIEW OF SYSTEMS: Could not be obtained, but the and daughter provide information. LABORATORY DATA: Reviewed. Her white count is 15.8, hemoglobin and platelets of 269,000. Her sodium 137, potassium 4.2, creatinine 0.72. Total protein 5.2, albumin 2.2. PHYSICAL EXAMINATION GENERAL: Patient is nonverbal, does not seem to be in acute distress. VITALS: Stable currently. Afebrile. HEENT: She is not icteric. NECK: Supple. No JVD. CHEST: Few crackles at the base. COR: S1 and S2. ABDOMEN: Soft. Bowel sounds are present. No hepatosplenomegaly. EXTREMITIES: On the left arm, there is erythema, there is edema, significant, affecting whole left arm. IMPRESSION: Cellulitis, concern about early necrotized soft tissue infection. It is hard to tell with the patient with dementia and she seems to be in pain. We will put her on vancomycin and clindamycin and cefepime. Discussed with the ER physician. Discussed with Dr. Velazco. Discussed with the family. We will observe her closely. They were warned about possibility of early necrotized soft tissue infection. Recheck in the morning. Discussed with the ER again. Thank you for asking us to see this patient. Discussed with Dr. Velazco. Job#: [id number] CF
[2017-10-28] MEDS: SODIUM CHLORIDE 0.9% 1000ML 1,000 ML IV SCH (15:50)
[2017-10-28 16:00] VITALS: BP 150/82
[2017-10-28 20:20] VITALS: BP 147/78
[2017-10-28] MEDS ORDERED: QUETIAPINE FUMARATE 25 MG TAB PO SCH (21:00)
[2017-10-28] MEDS: ACETAMINOPHEN 325 MG TAB PO PRN (21:15)
[2017-10-28 23:26] VITALS: BP 147/78
[2017-10-29] VITALS (7 sets, daily range): BP systolic 133–157; BP diastolic 65–99
[2017-10-29] MEDS: LORAZEPAM 0.5 MG TAB PO PRN ×2 (02:15→22:09)
[2017-10-29] MEDS: CLINDAMYCIN 600MG/D5W 50ML 50 ML IV SCH ×3 (04:08→20:25)
[2017-10-29] MEDS: LEVOTHYROXINE SODIUM 25 MCG TABLET PO SCH (05:30)
[2017-10-29] MEDS: VANCOMYCIN 500MG/NS 0.9% 100ML 100 ML IV SCH ×2 (05:30→17:20)
[2017-10-29 07:17] LABS: BASOPHILS % 0.2 % (0.0-1.0); EOSINOPHILS % 0.4 % (0.0-6.0); HEMATOCRIT 25.8 % (34.2-44.1); HEMOGLOBIN 8.7 g/dL (12.0-16.0); LYMPHOCYTES # (AUTO) 0.8 (1.0-3.2); LYMPHOCYTES % 9.6 % (18.0-39.1); MEAN CORPUSCULAR HEMOGLOBIN 30.5 pg (28-32); MEAN CORPUSCULAR HGB CONC 33.7 g/dL (31-35); MEAN CORPUSCULAR VOLUME 90.5 fL (81-99); MONOCYTES # (AUTO) 0.7 (0.2-0.8); MONOCYTES % 8.6 % (4.4-11.3); NEUTROPHILS # (AUTO) 6.6 (2.1-6.9); NEUTROPHILS % 80.3 % (38.7-80.0); PLATELET COUNT 197 x10e3/uL (140-360); RED BLOOD COUNT 2.85 x10e6/uL (3.6-5.1); RED CELL DISTRIBUTION WIDTH 14.5 % (11.7-14.4)
[2017-10-29 07:35] LABS: ALANINE AMINOTRANSFERASE 13 IU/L (0-55); ALBUMIN 1.7 g/dL (3.5-5.0); ALBUMIN/GLOBULIN RATIO 0.7 (0.8-2.0); ALKALINE PHOSPHATASE 60 IU/L (40-150); ANION GAP 8.5 mmol/L (8-16); BLOOD UREA NITROGEN 17 mg/dL (7-26); BUN/CREATININE RATIO 23 (6-25); CALCIUM 7.6 mg/dL (8.4-10.2); CARBON DIOXIDE 24 mmol/L (22-29); CHLORIDE 106 mmol/L (98-107); CREATININE, SERUM 0.73 mg/dL (0.57-1.11); EST GLOMERULAR FILTRATION RATE > 60 ML/MIN (60-); GLUCOSE 86 mg/dL (74-118); POTASSIUM 3.5 mmol/L (3.5-5.1); SODIUM 135 mmol/L (136-145)
[2017-10-29] MEDS: FAMOTIDINE 20 MG/2 ML VIAL IV SCH ×2 (08:43→21:42)
[2017-10-29] MEDS: CEFEPIME HCL 1 GM VIAL IV SCH ×2 (08:43→21:42)
[2017-10-29] MEDS: LACTOBACILLUS ACIDOPHILUS CAPSULE PO SCH ×2 (09:00→17:01)
[2017-10-29] MEDS: DOCUSATE SODIUM 100 MG CAP PO SCH ×2 (09:00→17:01)
[2017-10-29] MEDS: HYDRALAZINE HCL 100 MG TABLET PO SCH ×3 (09:00→21:42)
[2017-10-29] MEDS: LISINOPRIL 20 MG TAB PO SCH (09:00)
[2017-10-29] MEDS: MUPIROCIN 2% OINT 22 GM TUBE TOP SCH (09:51)
[2017-10-29] MEDS: BALSAM PERU/CASTOR OIL 60 GM OINT...G. TP SCH (09:51)
[2017-10-29] MEDS: SODIUM CHLORIDE 0.9% 1000ML 1,000 ML IV SCH (10:50)
[2017-10-29] MEDS: RISPERIDONE 0.5 MG TAB PO PRN (17:00)
[2017-10-29] MEDS: RISPERIDONE 0.5 MG TAB PO SCH (21:42)
[2017-10-30] VITALS (7 sets, daily range): BP systolic 127–160; BP diastolic 72–101
--- NOTE | 2017-10-30 01:18 | Consultation ---
DATE OF CONSULTATION: October 29, 2017 PSYCHIATRIC INITIAL CONSULT REASON FOR CONSULTATION: For treatment and evaluation of patient's dementia and confusion. HISTORY OF PRESENTING ILLNESS: Patient is an 82-year-old female who is admitted to inpatient psychiatry due to multiple medical problems. Psychiatric consult is called to evaluate patient's confusion during her inpatient stay. Upon evaluation today, patient is found to be lying on her bed. She is drowsy, but arousable. She is not able to participate to answer any questions at this time. Collateral information is obtained from her who was present in the room during this assessment. He reported that patient has history of dementia and has been getting increasingly confused and restless. She is not able to sleep and eat very well. She has not been agitated and has not been having any hallucinations. PAST PSYCHIATRIC HISTORY: Patient has history of dementia. She has never attempted any suicide. She does not drink alcohol and does not abuse any recreational drugs. FAMILY HISTORY: Patient does not have any family history of psychiatric illness. PAST MEDICAL HISTORY: 1. Hypothyroidism. 2. Hypertension. SOCIAL HISTORY: Patient lives with her family. CURRENT LABS: WBC 8.16, hemoglobin 8.7, hematocrit 25.8, platelets 197,000. Sodium 135, potassium 3.5, chloride 106, carbon dioxide 24, BUN 17, creatinine 0.73. AST 22, ALT 13, alkaline phosphatase 60. CURRENT MEDICATIONS: 1. Clindamycin. 2. Vancomycin. 3. Cefepime. 4. Pepcid. 5. Levothyroxine. 6. Ativan 0.5 mg p.o. q.8h. p.r.n. for anxiety. 7. Seroquel 25 mg p.o. nightly. MENTAL STATUS EXAMINATION: Patient is an elderly female who is currently lying on her bed. She is drowsy, but arousable. She is not able to participate for a complete mental status examination at this time. She is not agitated. IMPRESSION: 1. Unspecified psychosis. 2. Unspecified dementia with behavioral disturbances. PLAN: 1. Discontinue quetiapine for sedation. 2. Continue p.r.n. p.o. Ativan. 3. Add Haldol 2 mg IM q.6. p.r.n. for agitation. 4. Add Risperdal nightly and p.r.n. for agitation. We will continue to follow this patient during her inpatient stay for management of her psychiatric symptoms. Thank you very much for this consult. Job#: [id number]
[2017-10-30] MEDS: CLINDAMYCIN 600MG/D5W 50ML 50 ML IV SCH ×3 (04:30→20:07)
[2017-10-30] MEDS: LEVOTHYROXINE SODIUM 25 MCG TABLET PO SCH (07:25)
[2017-10-30] MEDS: SODIUM CHLORIDE 0.9% 1000ML 1,000 ML IV SCH (07:25)
[2017-10-30] MEDS: VANCOMYCIN 500MG/NS 0.9% 100ML 100 ML IV SCH ×2 (07:25→18:27)
[2017-10-30] MEDS: BALSAM PERU/CASTOR OIL 60 GM OINT...G. TP SCH (08:16)
[2017-10-30] MEDS: RISPERIDONE 0.5 MG TAB PO PRN (08:16)
[2017-10-30] MEDS: MUPIROCIN 2% OINT 22 GM TUBE TOP SCH (08:17)
[2017-10-30] MEDS: FAMOTIDINE 20 MG/2 ML VIAL IV SCH ×2 (08:39→20:59)
[2017-10-30] MEDS: LISINOPRIL 20 MG TAB PO SCH (08:39)
[2017-10-30] MEDS: HYDRALAZINE HCL 100 MG TABLET PO SCH ×3 (08:39→20:59)
[2017-10-30] MEDS: CEFEPIME HCL 1 GM VIAL IV SCH ×2 (08:39→20:59)
[2017-10-30] MEDS: LACTOBACILLUS ACIDOPHILUS CAPSULE PO SCH ×2 (08:39→18:27)
[2017-10-30] MEDS: DOCUSATE SODIUM 100 MG CAP PO SCH ×2 (08:39→18:27)
[2017-10-30] MEDS: ACETAMINOPHEN 325 MG TAB PO PRN ×2 (09:27→15:21)
[2017-10-30] MEDS: LORAZEPAM 0.5 MG TAB PO PRN (16:50)
[2017-10-30] MEDS: HALOPERIDOL LACTATE 5 MG/ML VIAL IM PRN (20:35)
[2017-10-30] MEDS: RISPERIDONE 0.5 MG TAB PO SCH (21:00)
[2017-10-30] MEDS ORDERED: ACETAMINOPHEN 325 MG SUPP PR PRN (21:45)
[2017-10-31] VITALS (10 sets, daily range): BP systolic 107–164; BP diastolic 51–95
[2017-10-31] MEDS: CLINDAMYCIN 600MG/D5W 50ML 50 ML IV SCH ×2 (04:00→12:00)
[2017-10-31] MEDS: SODIUM CHLORIDE 0.9% 1000ML 1,000 ML IV SCH ×2 (05:43→17:50)
[2017-10-31] MEDS: VANCOMYCIN 500MG/NS 0.9% 100ML 100 ML IV SCH ×2 (05:44→17:44)
[2017-10-31] MEDS: LEVOTHYROXINE SODIUM 25 MCG TABLET PO SCH (06:00)
[2017-10-31] MEDS: HALOPERIDOL LACTATE 5 MG/ML VIAL IM PRN ×3 (07:03→21:19)
[2017-10-31] MEDS: MUPIROCIN 2% OINT 22 GM TUBE TOP SCH (07:23)
[2017-10-31] MEDS: HYDRALAZINE HCL 100 MG TABLET PO SCH ×3 (07:23→20:56)
[2017-10-31] MEDS: BALSAM PERU/CASTOR OIL 60 GM OINT...G. TP SCH (07:23)
[2017-10-31] MEDS: DOCUSATE SODIUM 100 MG CAP PO SCH ×2 (07:23→17:00)
[2017-10-31] MEDS: LACTOBACILLUS ACIDOPHILUS CAPSULE PO SCH ×2 (07:23→17:00)
[2017-10-31] MEDS: CEFEPIME HCL 1 GM VIAL IV SCH ×2 (07:23→20:56)
[2017-10-31] MEDS: FAMOTIDINE 20 MG/2 ML VIAL IV SCH ×2 (07:23→20:56)
[2017-10-31] MEDS: LISINOPRIL 20 MG TAB PO SCH (07:23)
[2017-10-31] MEDS: LORAZEPAM 0.5 MG TAB PO PRN ×2 (08:52→21:19)
[2017-10-31] MEDS: RISPERIDONE 0.5 MG TAB PO PRN (12:00)
[2017-10-31] MEDS: RISPERIDONE 0.5 MG TAB PO SCH (20:56)
[2017-10-31] MEDS: ACETAMINOPHEN 325 MG TAB PO PRN (21:20)
[2017-11-01] MEDS: CLINDAMYCIN 600MG/D5W 50ML 50 ML IV SCH ×3 (04:00→19:40)
[2017-11-01] MEDS: VANCOMYCIN 500MG/NS 0.9% 100ML 100 ML IV SCH ×2 (05:37→16:51)
[2017-11-01] MEDS: LEVOTHYROXINE SODIUM 25 MCG TABLET PO SCH (05:38)
[2017-11-01 06:20] LABS: BASOPHILS % 0.6 % (0.0-1.0); EOSINOPHILS # (AUTO) 0.1 (0.0-0.4); EOSINOPHILS % 1.7 % (0.0-6.0); HEMATOCRIT 29.5 % (34.2-44.1); HEMOGLOBIN 9.4 g/dL (12.0-16.0); LYMPHOCYTES # (AUTO) 0.9 (1.0-3.2); LYMPHOCYTES % 13.9 % (18.0-39.1); MEAN CORPUSCULAR HEMOGLOBIN 29.8 pg (28-32); MEAN CORPUSCULAR HGB CONC 31.9 g/dL (31-35); MEAN CORPUSCULAR VOLUME 93.7 fL (81-99); MONOCYTES # (AUTO) 0.6 (0.2-0.8); MONOCYTES % 8.7 % (4.4-11.3); NEUTROPHILS # (AUTO) 4.7 (2.1-6.9); NEUTROPHILS % 74.5 % (38.7-80.0); PLATELET COUNT 199 x10e3/uL (140-360); RED BLOOD COUNT 3.15 x10e6/uL (3.6-5.1); RED CELL DISTRIBUTION WIDTH 14.6 % (11.7-14.4)
[2017-11-01 06:41] LABS: ALANINE AMINOTRANSFERASE 13 IU/L (0-55); ALBUMIN 1.6 g/dL (3.5-5.0); ALBUMIN/GLOBULIN RATIO 0.7 (0.8-2.0); ALKALINE PHOSPHATASE 51 IU/L (40-150); ANION GAP 10.3 mmol/L (8-16); BLOOD UREA NITROGEN 12 mg/dL (7-26); BUN/CREATININE RATIO 19 (6-25); CALCIUM 7.8 mg/dL (8.4-10.2); CARBON DIOXIDE 23 mmol/L (22-29); CHLORIDE 109 mmol/L (98-107); CREATININE, SERUM 0.62 mg/dL (0.57-1.11); EST GLOMERULAR FILTRATION RATE > 60 ML/MIN (60-); GLUCOSE 83 mg/dL (74-118); POTASSIUM 3.3 mmol/L (3.5-5.1); SODIUM 139 mmol/L (136-145)
[2017-11-01 07:00] VITALS: BP 152/81
[2017-11-01] MEDS: SODIUM CHLORIDE 0.9% 1000ML 1,000 ML IV SCH (07:37)
[2017-11-01 07:38] VITALS: BP 110/55
[2017-11-01] MEDS: CEFEPIME HCL 1 GM VIAL IV SCH ×2 (08:20→21:04)
[2017-11-01] MEDS ORDERED: POTASSIUM CHLORIDE 20 MEQ TAB CR PO STA (08:21)
[2017-11-01] MEDS: HYDRALAZINE HCL 100 MG TABLET PO SCH ×3 (08:24→21:04)
[2017-11-01] MEDS: DOCUSATE SODIUM 100 MG CAP PO SCH ×2 (08:24→15:26)
[2017-11-01] MEDS: FAMOTIDINE 20 MG/2 ML VIAL IV SCH ×2 (08:24→21:04)
[2017-11-01] MEDS: LACTOBACILLUS ACIDOPHILUS CAPSULE PO SCH ×2 (08:39→16:51)
[2017-11-01] MEDS: LISINOPRIL 20 MG TAB PO SCH (08:39)
[2017-11-01 12:00] VITALS: BP 149/98
[2017-11-01] MEDS: BALSAM PERU/CASTOR OIL 60 GM OINT...G. TP SCH (12:00)
[2017-11-01] MEDS: MUPIROCIN 2% OINT 22 GM TUBE TOP SCH (12:00)
[2017-11-01 16:49] VITALS: BP 159/85
--- NOTE | 2017-11-01 17:19 | Progress Note ---
DATE: November 01, 2017 NEUROLOGICAL PROGRESS NOTE The patient was evaluated and the events noted. The patient is in the room. She is intermittently yelling out, screaming. She is not redirectable. She is not following commands. She is not combative, just yelling. On discussing with the staff, the patient has been yelling intermittently. She is getting p.r.n. IM medication. She got Haldol p.r.n. IM last night. She got an Ativan p.r.n. p.o. last night. She is getting her Risperdal as scheduled and no serious side effects reported. ASSESSMENT: 1. Unspecified psychosis. 2. Unspecified dementia with behavioral disturbances. PLAN: 1. Increase Risperdal from 0.25 mg p.o. q. nightly to 0.5 mg p.o. q. nightly. 2. Continue Risperdal p.r.n. p.o. 3. Continue Haldol p.r.n. IM. 4. Continue Ativan p.r.n. p.o. 5. Monitor for agitation. Dictated by: LUIS DANIEL Almaraz Job#: [id number]
[2017-11-01] MEDS: HALOPERIDOL LACTATE 5 MG/ML VIAL IM PRN (17:55)
[2017-11-01 19:30] VITALS: BP 122/61
[2017-11-01] MEDS ORDERED: RISPERIDONE 0.5 MG TAB PO SCH (21:00)
[2017-11-01] MEDS: LORAZEPAM 0.5 MG TAB PO PRN (22:55)
[2017-11-02 00:13] VITALS: BP 140/69
[2017-11-02] MEDS: CLINDAMYCIN 600MG/D5W 50ML 50 ML IV SCH ×2 (04:51→12:15)
[2017-11-02 04:54] VITALS: BP 157/72
[2017-11-02] MEDS: LEVOTHYROXINE SODIUM 25 MCG TABLET PO SCH (05:47)
[2017-11-02 07:00] VITALS: BP 133/64
[2017-11-02 07:10] VITALS: BP 160/87
[2017-11-02] MEDS: LORAZEPAM 0.5 MG TAB PO PRN (07:56)
[2017-11-02] MEDS: FAMOTIDINE 20 MG/2 ML VIAL IV SCH (08:11)
[2017-11-02] MEDS: CEFEPIME HCL 1 GM VIAL IV SCH (08:11)
[2017-11-02] MEDS: HYDRALAZINE HCL 100 MG TABLET PO SCH (08:11)
[2017-11-02] MEDS: DOCUSATE SODIUM 100 MG CAP PO SCH (08:11)
[2017-11-02] MEDS: LISINOPRIL 20 MG TAB PO SCH (08:11)
[2017-11-02] MEDS: LACTOBACILLUS ACIDOPHILUS CAPSULE PO SCH (08:12)
[2017-11-02] MEDS ORDERED: VANCOMYCIN 500MG/NS 0.9% 100ML 100 ML IV SCH (09:00)
[2017-11-02 11:00] VITALS: BP 133/64
[2017-11-02] MEDS: SODIUM CHLORIDE 0.9% 1000ML 1,000 ML IV SCH (12:13)
[2017-11-02] MEDS: BALSAM PERU/CASTOR OIL 60 GM OINT...G. TP SCH (15:18)
[2017-11-02] MEDS: MUPIROCIN 2% OINT 22 GM TUBE TOP SCH (15:18)
[2017-11-02 15:30] VITALS: BP 133/64
--- NOTE | 2017-11-02 15:38 | Progress Note ---
DATE: November 02, 2017 PSYCHIATRIC PROGRESS NOTE The patient was found to be lying on the bed. Her is in the room. The patient is oriented to situation. She is sleeping and resting. She is not following commands. She is less combative and less agitated. She is feeling better today. The patient is getting p.r.n. IM Haldol and p.r.n. Risperdal. She is waiting for transfer to [place] today. She received her medication yesterday and no serious side effects seen reported. ASSESSMENT: Unspecified psychosis/dementia. PLAN: Continue Risperdal 0.5 mg p.o. at bedtime. Continue with Risperdal p.r.n. p.o. Continue with Haldol IM. Ativan has been discontinued. for agitation. Discussed with nursing staff and family members. DICTATED BY LUIS DANIEL DEAL Job#: [id number] LINO
[2017-11-02] MEDS ORDERED: FAMOTIDINE 20 MG TAB PO SCH (16:30)
== END 2017-11-02 15:54 | DRG 602 ==
LOC: ER 15:38 → ERHOLD 18:37 → IMCU 22:48 → MED/SURG3 10-29 19:22 → IMCU 10-29 20:06
PROVIDERS: ADMIT Internal Medicine; ATTEND Internal Medicine
DX: L03.114 Cellulitis of left upper limb (principal); L89.223 Pressure ulcer of left hip, stage 3; L89.154 Pressure ulcer of sacral region, stage 4; E46 Unspecified protein-calorie malnutrition; F03.91 Unspecified dementia, unspecified severity, with behavioral disturbance; I89.0 Lymphedema, not elsewhere classified; F29 Unspecified psychosis not due to a substance or known physiological condition; Z74.01 Bed confinement status; I10 Essential (primary) hypertension; D72.829 Elevated white blood cell count, unspecified; Z88.1 Allergy status to other antibiotic agents; Z88.0 Allergy status to penicillin; Z88.2 Allergy status to sulfonamides; Z88.8 Allergy status to other drugs, medicaments and biological substances; K21.9 Gastro-esophageal reflux disease without esophagitis; E78.5 Hyperlipidemia, unspecified
CPT/HCPCS: 36415; 51700; 71045; 80053; 80202; 81001; 83605; 83735; 84100; 84134; 85025; 85610; 85730; 87040; 87071; 87086; 87205; 93971; 96361; 96367; 96376; 97139; 99284; J0692; J1630; J3370; J7030